=== PATIENT | male | born 1970 | race Caucasian/White ===

== ENCOUNTER 2017-10-26 10:15 | Inpatient (IN) | payer BC, OTHER ==
--- NOTE | 2017-10-26 10:12 | EDPHY ---
H & P Time Seen by Provider: 10/26/17 10:25 HPI/ROS: CHIEF COMPLAINT: Left upper arm pain HISTORY OF PRESENT ILLNESS: This is a 47-year-old male arrived as a limited trauma after falling off of a ladder that was placed on the scaffolding. He was painting a ceiling when this occurred. He landed on his left side, did not strike his head, did not lose consciousness. He complains of left upper arm and shoulder pain and left groin pain. He denies neck or back pain. He does not have chest pain or shortness of breath. He he does not have abdominal pain or nausea. No numbness or weakness. He denies headache. REVIEW OF SYSTEMS: A ten system review of systems was performed and is negative with the exception of the items mentioned in the HPI. 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 He does not use tobacco products. General: The patient is in no acute distress. The patient is alert. Vassar Coma Score is 15 . Head: Normocephalic/atraumatic. No Redmond's sign. No raccoon eyes. Neck: Nontender with palpation of the cervical spine. No pain with active range of motion of the neck. Trachea is midline. Eyes: Right pupil is eccentrically shaped, left pupil round and reactive to light. EOMI. No subconjunctival hemorrhage. Ears nose and throat: No hemotympanum. Nares are patent and without clotted nasal blood. No dental injury or malocclusion. Airway is patent. Lungs: No rib tenderness, crepitus, or subcutaneous emphysema. Breath sounds are equal and audible bilaterally. No wheezes, rales, or rhonchi. Cardiac: Heart has regular rate and rhythm without murmur, rub, or gallop. Abdomen: Soft, nontender, and nondistended. No guarding or rebound. Bowel sounds are present. Back: No vertebral tenderness. Pelvis: Stable. There is pain with palpation of the left groin. Skin: No ecchymoses. Skin is warm and dry. Extremities: Tender to palpation over the left humerus. Pulses: 2+ femoral and radial pulses bilaterally. Neuro: The patient is alert and oriented. Sensation is intact to light touch of all 4 extremities. Strength is 5 over 5 with testing of major motor groups-- unable to fully test left upper extremity due to pain/injury. 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 He is able to flex, extend, pronate, and supinate his left wrist and can extend all of his fingers on the left. Pupils as above. Facial expressions symmetric. Tongue midline. (Glendy Salter) Constitutional: Initial Vital Signs Temperature (C) 37.0 C 10/26/17 10:21 Heart Rate 67 10/26/17 10:21 Respiratory Rate 18 10/26/17 10:21 Blood Pressure 99/63 L 10/26/17 10:21 O2 Sat (%) 92 10/26/17 10:21 O2 Delivery Mode Room Air Allergies/Adverse Reactions: No Known Allergies Allergy (Verified 10/26/17 14:48) Home Medications: Medication Instructions Recorded Acetaminophen [Tylenol 325mg (*)] 325 - 650 mg PO Q4H PRN 10/27/17 Ibuprofen [Motrin (*)] 600 mg PO Q6H PRN tab 10/31/17 Polyethylene Glycol 3350 [Miralax 17 gm PO DAILY pkt 10/31/17 17 gm (*)] Rivaroxaban [Xarelto 10mg (*)] 10 mg PO DAILY #21 tab 10/31/17 Sennosides [Senokot] 1 tab PO BID tab 10/31/17 morphINE SR [Ms Contin/Oramorph 15 15 mg PO HS #7 tab 10/31/17 mg (*)] oxyCODONE IR [Oxycodone Ir (*)] 5 - 15 mg PO Q3HRS PRN #50 tab 10/31/17 Medical Decision Making Procedures: Procedure: Splint placement. A [ left arm coaptation] splint was applied by the emergency department staff. After application of the splint I returned and re-examined the patient. The splint was adequately immobilizing the joint and distal to the splint the patient's circulation and sensation was intact. (Glendy Salter) ED Course/Re-evaluation: Limited trauma after fall of approximately 15 ft. I do not suspect head injury. He has left humerus tenderness. Will obtain x-rays of the humerus in the pelvis. X-rays have been reviewed by me. He has a midshaft left humeral fracture, displaced, not open. There is some widening of the pubic symphysis appreciated on the pelvic x-ray. CT of pelvis ordered to further assess. On reexamination of the patient in remains awake and alert. He has normal strength in all 4 extremities--limited testing of the left upper extremity because of his humerus fracture. Sensation remains normal. Lungs are clear. Heart is regular. Abdomen is soft and nontender. CT scan of pelvis shows a nondisplaced right sacral ala fracture. His pain is on the contralateral side. However, when he attempts to walk he is unable to do so because of pain. He has received IV Dilaudid, IV Zofran, and IV Toradol in the emergency department. I am recommending admission. Patient was serially evaluated while in the emergency department by Dr. Uzair Hu and by me. I have not found evidence of other injuries. Dr. Gee Cabello has been notified of the patient's emergency department visit and injuries. He recommends a coaptation splint which was placed in the emergency department. Dr. Johanny Haider has been notified to oversee the patient's admission. (Glendy Salter) Differential Diagnosis: I considered a differential diagnosis of traumatic injury that includes but is not limited to intracranial hemorrhage, skull fracture, concussion, vertebral injury, spinal cord injury, intrathoracic injury, intra-abdominal injury, long bone fractures, contusions, abrasions, and lacerations. (Glendy Salter) Other Provider: 1300: Patient unable to walk secondary to pain in left pelvis/groin. He is able to bear weight on both legs unassisted - it is trying to take a step that causes pain. Given inability to ambulate, patient will require admission to the hospital. I consulted Drs. Haider and Irineo (ortho). (Uzair Hu) - Data Points Medications Given: Discontinued Medications Hydrocodone Bitart/Acetaminophen (Vernon 5/325) 1 - 2 tab PO Q6HRS PRN PRN Reason: Pain, Moderate Able to Take PO Stop: 11/05/17 13:18 Last Admin: 10/27/17 05:06 Dose: 2 tab Hydrocodone Bitart/Acetaminophen (Vernon 5/325) 1 - 2 tab PO Q4HRS PRN PRN Reason: Pain, Moderate Able to Take PO Stop: 11/05/17 13:18 Last Admin: 10/27/17 09:13 Dose: 2 tab Diazepam (Valium) 5 mg IVP EDNOW ONE Stop: 10/26/17 10:47 Last Admin: 10/26/17 10:56 Dose: 5 mg Docusate Sodium (Colace) 100 mg PO BID [facility] Stop: 04/25/18 20:59 Last Admin: 10/28/17 09:17 Dose: 100 mg Enoxaparin Sodium (Lovenox) 40 mg SC DAILY [facility] Stop: 04/25/18 08:59 Last Admin: 10/28/17 09:18 Dose: 40 mg Hydromorphone HCl (Dilaudid) 0.5 mg IVP EDNOW ONE Stop: 10/26/17 10:48 Last Admin: 10/26/17 10:54 Dose: 0.5 mg Hydromorphone HCl (Dilaudid) 0.5 mg IVP EDNOW ONE Stop: 10/26/17 11:24 Last Admin: 10/26/17 11:32 Dose: 0.5 mg Sodium Chloride (Ns) 1,000 mls @ 0 mls/hr IV EDNOW ONE; Wide Open PRN Reason: Protocol Stop: 10/26/17 10:25 Last Admin: 10/26/17 10:29 Dose: 1,000 mls Ibuprofen (Motrin) 600 mg PO Q8HRS [facility] Stop: 04/24/18 13:59 Last Admin: 10/28/17 13:42 Dose: 600 mg Ketorolac Tromethamine (Toradol) 30 mg IVP EDNOW ONE Stop: 10/26/17 12:36 Last Admin: 10/26/17 12:45 Dose: 30 mg Ketorolac Tromethamine (Toradol) 15 mg IVP Q6HRS [facility] Stop: 11/01/17 11:59 Last Admin: 10/28/17 05:05 Dose: 15 mg Oxycodone HCl (Oxycodone Ir) 5 - 15 mg PO Q3HRS PRN PRN Reason: Pain, Severe Able to Take PO Stop: 11/06/17 13:02 Last Admin: 10/28/17 15:22 Dose: 15 mg Oxycodone HCl (Oxycodone Ir) 5 mg PO ONCE ONE Stop: 10/28/17 14:16 Last Admin: 10/28/17 14:20 Dose: 5 mg Departure - Departure Disposition: [facility] Inpatient Acute Clinical Impression: Fracture of humerus, left, closed Qualifiers: Encounter type: initial encounter Humerus Location: shaft Fracture morphology: unspecified fracture morphology Qualified Code(s): S42.302A - Unspecified fracture of shaft of humerus, left arm, initial encounter for closed fracture Sacral fracture, closed Qualifiers: Encounter type: initial encounter Fracture alignment: nondisplaced Condition: Fair
[2017-10-26] MEDS ORDERED: NS 1,000 ML IV ONE (10:24)
[2017-10-26] MEDS ORDERED: DIAZEPAM 5 MG/ML 1 ML SYR IVP ONE (10:46)
[2017-10-26] MEDS ORDERED: HYDROmorphONE/DILAUDID 2 MG/ML INJ IVP ONE ×2 (10:47→11:23)
[2017-10-26] MEDS ORDERED: KETOROLAC 30 MG/1 ML SDV IVP ONE (12:35)
[2017-10-26] MEDS ORDERED: ONDANSETRON 4 MG/2 ML VIAL IVP PRN (13:19)
[2017-10-26] MEDS ORDERED: ACETAMINOPHEN 325 MG TAB PO PRN (13:19)
[2017-10-26] MEDS ORDERED: HYDROCODONE/APAP 5/325 TAB PO PRN (13:19)
--- NOTE | 2017-10-26 14:09 | GHP ---
DATE OF ADMISSION: 10/26/2017 CHIEF COMPLAINT: Limited trauma. HISTORY OF PRESENT ILLNESS: The patient is a 47-year-old who was on a wheeled scaffolding with a ladder painting approximately 15 feet in the air, when the wheels moved out on the scaffolding and the ladder fell through the scaffolding. He did not lose consciousness. He landed on his left side. He currently complains of left arm pain and left groin pain. Workup was obtained in the ER which included humerus, pelvis, and shoulder x-ray, which showed transverse fracture of the midshaft of the left humerus with posterior displacement. Pelvis CT revealed a nondisplaced vertical fracture of the right sacral ala. PAST MEDICAL HISTORY: Trauma to his right eye. PAST SURGICAL HISTORY: Back surgery by Dr. Ferrer in July of 2017. FAMILY HISTORY: Noncontributory. SOCIAL HISTORY: He is and does not use tobacco. REVIEW OF SYSTEMS: Ten-point review of systems is negative with the exception of pain in the left groin which is improving. PHYSICAL EXAMINATION: VITAL SIGNS: Reviewed. GENERAL: Pleasant, well- nourished, well-groomed man sitting on edge of bed. at bedside. HEENT: Normocephalic, atraumatic. Left pupil equal and round. Right pupil with limited motion. No rhinorrhea. No otorrhea. Teeth fit together normally. No midface instability. NECK: No cervical spine tenderness. C collar was removed prior to my arrival. CARDIAC: Regular rate. No peripheral edema. LUNGS: Clear to auscultation bilaterally. No increased work of breathing. CHEST: No chest tenderness. BACK: No back tenderness. MUSCULOSKELETAL: 5/5 strength with the exception of the left arm and 4/5 strength with the quadriceps on the left leg. NEURO: Grossly intact. He does have a radial pulse. His left upper extremity is swollen. IMPRESSION AND PLAN: A 47-year-old status post fall with no loss of consciousness. Dr. Cabello was consulted by patient request, who will see him. We discussed that he could have a strain to his groin. I offered MRI to better delineate the area, but as it is improving, he would like to wait as it would likely not change surgical management. I have also placed a call as a courtesy to Dr. Ferrer to let him know of his admission. /[id number]/MODL MTDD
[2017-10-26] MEDS: IBUPROFEN 600 MG TAB PO SCH ×2 (18:33→21:54)
--- NOTE | 2017-10-26 20:15 | SOAPPROG ---
SOAP Progress Note Assessment/Plan: Assessment: As in Xray findings. NV intact. Plan: Discussed options including pros and cons of: Castillo Brace, IM quang fixation, plate and screw fixation. All of these options can be reliably completed as an outpatient. Pain control and mobilization (walking) for now. Consultation note dictated. 10/26/17 20:11 Subjective: Left arm hurts all the time but way worse when I move. Objective: Vital Signs Temp Pulse Resp BP Pulse Ox 37.2 C 91 16 148/87 H 92 10/26/17 19:32 10/26/17 19:32 10/26/17 19:32 10/26/17 19:32 10/26/17 19:32 10/25/17 10/26/17 10/27/17 05:59 05:59 05:59 Intake Total 1000 Output Total 300 Balance 700 Left are in Coaptation splint. CSM Intact in Median, Musculotaneous, Radial, Ulnar and Axillary nerve distributions. Hand warm with bounding radial and ulnar pulses at wrist. Xray reviewed. Mid shaft humeral diaphysis fracture.. ICD10 Worksheet Patient Problems: Problems Problem Status Onset Fracture of humerus, left, closed Acute Sacral fracture, closed Acute
--- NOTE | 2017-10-26 20:51 | GCON ---
DATE OF CONSULTATION: 10/26/2017 REASON FOR CONSULTATION: Left midshaft humerus fracture. 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 Unfortunately, the ladder sli pped through the planking on the scaffolding and he fell approximately 15-18 feet to the ground. He was seen in the [facility] Emergency Department where in addition to a sacral ala fracture, he had a midshaf t left humerus nondominant arm, humerus fracture. He has significant pain in the left anterior groin that is limiting his ability to ambulate considerably. The remaining portion of his medical history is reviewed from his intake H and P by Dr. Haider and his workup in the emergency department at [facility]. PHYSICAL EXAMINATION: GENERAL: Finds a well-appearing gentleman in his bed today. A coaptation spl int has been applied to the left arm. By report of Dr. Hu, there were no open lesions on the a rm and I have not taken his coaptation splint down secondary to the discomfort that it would cause. He has an intact neurovascular examination in the lateral aspect of the arm. He is able to weakly fi re the deltoid today. He also has normal sensation in the musculocutaneous, median, ulnar, and media n nerve distributions. Radial nerve function is normal, especially with wrist and digits as well as thumb extension. Batch Records Clerk strength is normal. I have reviewed his films, which show a mid diaphyseal humerus fracture that is slightly displaced an d angulated. I talked to the patient about the treatment possibilities including the role of Castillo functional bracing, intramedullary nail fixation or plate and screw fixation. We discussed the pros and cons of each of these. The patient does not need to make a decision of this tonight over what treatment wis hes to pursue. We will mobilize him as tolerated with his groin injury and sacral ala fracture that is nondisplaced. That should not impede his ability to walk and move around. I likely would proceed with surgical f ixation as an outpatient if he chooses this. If he will be in a hospital through tomorrow, I will co nsult with [facility] to fit him for a Castillo fracture brace. In the meanti me, he is positioned adequately in his Castillo brace until which time we can reach a decision on lo ng-term treatment for this. /[id number]/MODL
[2017-10-27] MEDS: IBUPROFEN 600 MG TAB PO SCH ×3 (06:11→21:14)
[2017-10-27] MEDS ORDERED: HYDROCODONE/APAP 5/325 TAB PO PRN (07:56)
--- NOTE | 2017-10-27 08:05 | TRAUMAPN ---
Trauma Progress Note Assessment/Plan: no new overnight events. pain controlled with po meds. no n/v. no sob. no abd c/o. no new ext numbness or tingling (chronic left leg numbness). has not ambulated yet. left groin pain with leg flexion. no other new concerns voiced. avss. comfortable. neck nontender. heart reg. lungs clear. abd nontender. LUE in splint. hand warm and sensate. left 2+ fem pulse. mild hip tenderness with palpation. SCD in place. Left humeral fx, right sacral ala rx, left prob groin strain. PT to eval and treat today. pt desires to be discharged if able to ambulate safely. discussed possible role for MRI if unable to ambulate. will f/u with dr bernabe ([facility]) 1 week. Objective: Vital Signs Temp Pulse Resp BP Pulse Ox 37.1 C 78 16 142/99 H 93 10/27/17 04:00 10/27/17 04:00 10/27/17 04:00 10/27/17 04:00 10/27/17 04:00 10/26/17 10/27/17 10/28/17 05:59 05:59 05:59 Intake Total 1900 Output Total 500 Balance 1400
[2017-10-27] MEDS: ENOXAPARIN 40 MG/0.4 ML SYR SC SCH (08:46)
[2017-10-27] MEDS: KETOROLAC 15 MG/1 ML SDV IVP SCH ×3 (12:25→23:51)
--- NOTE | 2017-10-27 13:52 | SOAPPROG ---
AZUL Progress Note Assessment/Plan: Assessment/Plan: Left Humerus [id number] with mild angulation and displacement. Injured 10/26/17 while falling off of a ladder. Pt. would like to manage this fx with the Castillo brace rather than surgically at this point. Our office has been notified and will arrange for the fitting of this brace. Pt. to remain in coaptation splint and sling until he goes into his brace. Continue Ice Continue Pain meds per trauma Continue PT/OT to assist in ambulation strategies. Avoid NSAID's once outpatient-to avoid delaying bone healing. Please call [phone] to arrange a follow-up appointment with Dr. Cabello. Subjective: Pt. states that the pain in the left arm is the same that is was yesterday, no worse. He can feel the fracture shifting as he moves, but pain is manageable. He has had no numbness, tingling or weakness in the hand or fingers. The pain in his hip is most significant at this point and he is having difficulty ambulating more than just a few steps without significant pain in his hip. Trauma is managing his hip/back discomfort. Objective: Pt. resting in bed, appears to be comfortable and is answering questions appropriately. Coaptation splint and sling are in place. Distally, skin is warm, dry, pink to all digits. Sensation is intact to all digits to light touch. He can move the thumb specifically, as well as all of the digits without any difficulty. Capillary refill is brisk to all digits radial/ulnar pulses are brisk as well. 10/27/17 13:42 Objective: Vital Signs Temp Pulse Resp BP Pulse Ox 36.9 C 91 14 127/88 H 90 L 10/27/17 11:50 10/27/17 11:50 10/27/17 11:50 10/27/17 11:50 10/27/17 11:50 10/26/17 10/27/17 10/28/17 05:59 05:59 05:59 Intake Total 1900 500 Output Total 500 Balance 1400 500 ICD10 Worksheet Patient Problems: Problems Problem Status Onset Fracture of humerus, left, closed Acute Sacral fracture, closed Acute
[2017-10-27] MEDS: oxyCODONE IR 5 MG TAB PO PRN ×3 (14:20→21:13)
--- NOTE | 2017-10-27 15:47 | SOAPPROG ---
AZUL Progress Note Assessment/Plan: Assessment: Decision for fracture functional bracing. Plan: I have ordered a Castillo fracture brace for Terry's left arm from [facility] in [place]. They will come to hospital to fit this, likely on Tuesday10/28/17. 10/26/17 20:11 10/27/17 15:44 Objective: Vital Signs Temp Pulse Resp BP Pulse Ox 36.8 C 96 18 123/90 H 93 10/27/17 15:17 10/27/17 15:17 10/27/17 15:17 10/27/17 15:17 10/27/17 15:17 10/26/17 10/27/17 10/28/17 05:59 05:59 05:59 Intake Total 1900 500 Output Total 500 Balance 1400 500 ICD10 Worksheet Patient Problems: Problems Problem Status Onset Fracture of humerus, left, closed Acute Sacral fracture, closed Acute
--- NOTE | 2017-10-27 16:25 | ASMTCMCOM ---
CM Note CM Note Notes: Pt admitted for left humerus displaced fracture and pelvic fracture after falling off a ladder. Pt lives at home with and 23 year old son and works from home. Therapies are recommending inpatient Rehab for which he has been evaluated and approved, due to non weight bearing status of left arm and difficulty ambulating. Pt has not yet committed to a discharge plan. [facility] has submitted pt for [employer] authorization. Pt unavailable to discuss plans at this time. CM to follow. D/C Plan: Inpatient Rehab Date Signed: 10/27/2017 04:24 PM Electronically Signed By:Elinor Solano
--- NOTE | 2017-10-27 17:06 | PDMN ---
Medical Necessity Medical necessity: Change to inpt as of 10/27/17 @ 5764. Pt meets inpt criteria per MD order and Musculoskeletal GRG, multi-trauma. Est LOS>2MN for management of multi-trauma injuries including L humerus fracture, R sacral ala fracture, hip pain w/great difficulty ambulating. MRI results pending, IV Toradol and PO pain meds, PT/OT recommending inpt rehab, ongoing med nec inpt eval/treatment.
--- NOTE | 2017-10-27 19:18 | TRAUMAPNT ---
Trauma Tertiary Progress Note Assessment/Plan: no new overnight events. pain controlled with po meds. no n/v. no sob. no abd c/o. no new ext numbness or tingling (chronic left leg numbness). has not ambulated yet. left groin pain with leg flexion. no other new concerns voiced. avss. comfortable. neck nontender. heart reg. lungs clear. abd nontender. LUE in splint. hand warm and sensate. left 2+ fem pulse. mild hip tenderness with palpation. SCD in place. neck and back nontender. Left humeral fx, right sacral ala rx, left prob groin strain. PT to eval and treat today. pt desires to be discharged if able to ambulate safely. discussed possible role for MRI if unable to ambulate. will f/u with dr bernabe ([facility]) 1 week. MRI reviewed with rads - left pubic rami fx with right adductor longus strain. continued supportive care/pain control. rehab if unable to ambulate independently with po meds. Objective: Vital Signs Temp Pulse Resp BP Pulse Ox 36.8 C 88 16 137/88 H 92 10/27/17 16:45 10/27/17 16:45 10/27/17 16:45 10/27/17 16:45 10/27/17 16:45
[2017-10-27] MEDS: DOCUSATE SODIUM 100 MG CAP PO SCH (21:14)
[2017-10-28] MEDS: IBUPROFEN 600 MG TAB PO SCH ×2 (05:04→13:42)
[2017-10-28] MEDS: oxyCODONE IR 5 MG TAB PO PRN ×4 (05:04→15:22)
[2017-10-28] MEDS: KETOROLAC 15 MG/1 ML SDV IVP SCH (05:05)
--- NOTE | 2017-10-28 08:25 | TRAUMAPN ---
Trauma Progress Note Assessment/Plan: 47yo M s/p fall off scaffold c L humerus fx, L sacral alar fx, L pubic rami fx - Neuro: pain appears well controlled on oxycodone, has been trying to take it before ambulation for max effect - Pulm: on O2 overnight, lungs are otherwise clear. No rib fx. Still needs pulm toilet - CV: HDS - abd: tolerating reg diet, bowel regimen ordered - Renal: voiding, UOP adequate - MSK: still needs to be fit with LUE brace which is NWB. Patient is WBAT for ambulation which has been main issues as he has a lot of pain with ambulation currently. - Dispo: PT recs inpatient rehab, patient wants to go home. Will see how he does today. Subjective: no new complaints, in bed resting comfortably. Objective: Vital Signs Temp Pulse Resp BP Pulse Ox 36.9 C 85 16 134/78 H 96 10/28/17 04:00 10/28/17 04:00 10/28/17 04:00 10/28/17 04:00 10/28/17 04:00 10/27/17 10/28/17 10/29/17 05:59 05:59 05:59 Intake Total 850 Output Total 400 Balance 850 -400
[2017-10-28] MEDS: DOCUSATE SODIUM 100 MG CAP PO SCH (09:17)
[2017-10-28] MEDS: ENOXAPARIN 40 MG/0.4 ML SYR SC SCH (09:18)
[2017-10-28 11:43] VITALS: BP 138/86
--- NOTE | 2017-10-28 12:21 | SOAPPROG ---
AZUL Progress Note Assessment/Plan: Assessment/Plan: Left Humerus [id number] with mild angulation and displacement. Injured 10/26/17 after falling off of a ladder. Pt. would like to manage this fx with the Castillo brace rather than surgically at this point. [facility] has been notified and will come to fit the pt for the brace. Pt. will be discharged to [facility] inpatient rehab later today due to significant pain with ambulation, due to his pelvis fx. Pt. to remain in coaptation splint and sling until he goes into his brace. Continue NWB LUE. Continue Ice Continue Pain meds per trauma Avoid NSAID's once outpatient-to avoid delaying bone healing. Please call [phone] to arrange a follow-up appointment with Dr. Cabello. Please follow-up next week. Subjective: Pt. states that the pain in the left arm is the same that is was yesterday, no worse. He can feel the fracture shifting as he moves, but pain is manageable. He has had no numbness, tingling or weakness in the hand or fingers. The pain in his hip is most significant at this point and he is having difficulty ambulating more than just a few steps without significant pain in his hip. Trauma is managing his hip/back discomfort. Objective: Pt. resting in bed, appears to be comfortable and is answering questions appropriately. Coaptation splint and sling are in place. Distally, skin is warm, dry, pink to all digits. Sensation is intact to all digits to light touch. He can move the thumb specifically, as well as all of the digits without any difficulty. Capillary refill is brisk to all digits radial/ulnar pulses are brisk as well. 10/27/17 13:42 10/28/17 12:18 Objective: Vital Signs Temp Pulse Resp BP Pulse Ox 37.2 C 98 20 138/86 H 93 10/28/17 11:37 10/28/17 11:37 10/28/17 11:37 10/28/17 11:37 10/28/17 11:37 10/27/17 10/28/17 10/29/17 05:59 05:59 05:59 Intake Total 850 Output Total 400 Balance 850 -400 ICD10 Worksheet Patient Problems: Problems Problem Status Onset Fracture of humerus, left, closed Acute Sacral fracture, closed Acute
--- NOTE | 2017-10-28 12:52 | PDIAF ---
- Diagnosis Diagnosis: fall c L humerus fx, L sacral alar fx, l pubic rami fx Code Status: Full Code - Medication Management Discharge Medications: Medications to Continue on Transfer Acetaminophen [Tylenol 325mg (*)] 325 - 650 mg PO Q4H PRN 10/27/17 [Last Taken Unknown] Hydrocodone/Acetaminophen [[place] 5/325 (*)] 1 - 2 tab PO Q4H PRN 10/27/17 [Last Taken Unknown] Ibuprofen [Motrin (*)] 800 mg PO Q8H PRN 10/27/17 [Last Taken Unknown] Enoxaparin [Lovenox 40 MG (*)] 40 mg SC DAILY syr 10/28/17 [Last Taken Unknown] Ibuprofen [Motrin (*)] 600 mg PO Q8HRS tab 10/28/17 [Last Taken Unknown] oxyCODONE IR [Oxycodone Ir (*)] 5 - 15 mg PO Q3HRS PRN tab 10/28/17 [Last Taken Unknown] Discharge Medications: Refer to the Discharge Home Medication list for PRN reason. - Orders Services needed: Registered Nurse, Physical Therapy, Occupational Therapy Diet Recommendation: no restrictions on diet Diet Texture: Regular Texture Diet Additional Instructions: activity as tolerated. diet as tolerated. may shower. left arm brace at all times - ok to remove to shower. f/u dr. cabello 1 week. f/u trauma as needed. - Follow Up Care Current Providers and Referrals: JAMES FRIEDMAN [Non Staff Provider (MD)] - As per Instructions Shawn Dailey MD [Medical Doctor] - (if needed) Enrico Cabello MD [Medical Doctor] - follow up in 1 week
[2017-10-28] MEDS ORDERED: oxyCODONE IR 5 MG TAB PO ONE (14:15)
--- NOTE | 2017-10-28 17:05 | ASMTCMCOM ---
CM Note CM Note Notes: Pt medically stable for d/c to [facility] inpatient rehab and [employer] has authorized. Pt agrees to pay for [facility] transport scheduled for 1500. RN May to call report. Orders to be obtained via [employer]. Date Signed: 10/28/2017 04:47 PM Electronically Signed By:KATHERINE Torres
--- NOTE | 2017-10-28 17:06 | ASDISCHSUM ---
Discharge Information Plan Status:Inpatient Rehab Medically Cleared to Leave: Discharge Date:10/28/2017 03:35 PM CM D/C Disposition: ADT D/C Disposition:[facility] IP Projected Discharge Date:10/28/2017 11:00 AM Transportation at D/C: Discharge Delay Reason: Follow-Up Date:10/28/2017 11:00 AM Discharge Slot: Final Diagnosis: Placement Information Referral Type:Rehabilitation Hospital Referral ID:[id number] Provider Name:[facility] Inpatient [facility] Address 1:[address] Phone Number: Address 2: Fax Number: [facility] [place] Selection Factors: State:[place] Patient Contact Information Contact Name:CALLIE Relationship: Address:[address] Work Phone: City:[place] Alternate Phone: State/Zip Code:[place] [address] Email: Financial Information Financial Class:[employer] Primary Plan Desc:CHERELLE Yu [facility] Primary Plan Number:[id number] Secondary Plan Desc: Secondary Plan Number: Assessment Information LACE LACE Length of stay for Answers: 3 days current admission Acuity / Level of Answers: Yes Care: Did the patient have an inpatient admission? # of Emergency department Answers: 1-2 visits in the last 6 months Score: 7 Date Signed: 10/28/2017 04:48 PM Electronically Signed By:KATHERINE Torres [facility] Progress Note CM Note CM Note Notes: Pt admitted for left humerus displaced fracture and pelvic fracture after falling off a ladder. Pt lives at home with and 23 year old son and works from home. Therapies are recommending inpatient Rehab for which he has been evaluated and approved, due to non weight bearing status of left arm and difficulty ambulating. Pt has not yet committed to a discharge plan. [facility] has submitted pt for [employer] authorization. Pt unavailable to discuss plans at this time. CM to follow. D/C Plan: Inpatient Rehab Date Signed: 10/27/2017 04:24 PM Electronically Signed By:Elinor Solano [facility] CM Progress Note CM Note CM Note Notes: Pt medically stable for d/c to [facility] inpatient rehab and [employer] has authorized. Pt agrees to pay for [facility] transport scheduled for 1500. KELLEN May to call report. Orders to be obtained via [employer]. Date Signed: 10/28/2017 04:47 PM Electronically Signed By:KATHERINE Torres Intervention Information
--- NOTE | 2017-10-31 13:51 | PDDCSUM ---
Discharge Summary Discharge Summary: DISCHARGE SUMMARY Date of Admission October 26 Date of Discharge October 28 DISCHARGE DIAGNOSES -fall off ladder with the following injuries: Left humerus fracture, left sacral ala fracture, left superior pubic rami fracture. HOSPITAL COURSE The patient was admitted as a full trauma activation given the mechanism of his injuries. The above injuries were identified, he subsequently had consultation from orthopedics surgery. The decision was made to treat all injuries non operatively in the patient was treated as such showed his hospital course. He had consultation from both Physical and Occupational therapy and was subsequently discharged to inpatient rehab in stable condition weight-bearing as tolerated to the lower extremities nonweightbearing to the left upper extremity in stable condition on the afternoon of the . DISCHARGE MEDICATIONS Oxycodone as needed for pain DISPOSITION Inpatient rehab FOLLOW UP Follow up with Dr. Cabello in 1 week for re-evaluation follow up with Trauma as needed
== END 2017-10-28 15:35 | DRG 562 ==
LOC: EDUNIT# → F3N 14:49 → OBSVTOIN 10-27 16:48
PROVIDERS: ADMIT Surgery; ATTEND Surgery
PROC: 2W3BX1Z Immobilization of Left Upper Arm using Splint (ICD-10-PCS; principal; 2017-10-27)
DX: S42.322A Displaced transverse fracture of shaft of humerus, left arm, initial encounter for closed fracture (principal); S32.402A Unspecified fracture of left acetabulum, initial encounter for closed fracture; S32.111A Minimally displaced Zone I fracture of sacrum, initial encounter for closed fracture; S32.592A Other specified fracture of left pubis, initial encounter for closed fracture; W11.XXXA Fall on and from ladder, initial encounter; Y93.E9 Activity, other interior property and clothing maintenance; E86.9 Volume depletion, unspecified
CPT/HCPCS: 96374; 97116-GP; 97162-GP; 97165-GO; 97530-GP; A4565; G0378; J1170; J1650; J1885; J3360

== ENCOUNTER 2017-10-28 14:22 | Inpatient (IN) | payer OTHER ==
[2017-10-28] MEDS ORDERED: BISACODYL 10 MG SUPP PR PRN (16:50)
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
[2017-10-28] MEDS: morphINE SR 15 MG TAB PO SCH (21:23)
[2017-10-28] MEDS: SENNOSIDES 1 TAB PO SCH (21:23)
[2017-10-28] MEDS: ACETAMINOPHEN 500 MG TAB PO SCH (21:24)
[2017-10-29] MEDS: oxyCODONE IR 5 MG TAB PO PRN ×4 (05:10→20:47)
[2017-10-29] MEDS: ACETAMINOPHEN 500 MG TAB PO SCH ×3 (06:06→20:48)
[2017-10-29] MEDS: ENOXAPARIN 40 MG/0.4 ML SYR SC SCH (09:31)
[2017-10-29] MEDS: POLYETHYLENE GLYCOL 3350 17 GM PKT PO SCH (09:36)
[2017-10-29] MEDS: SENNOSIDES 1 TAB PO SCH ×2 (09:36→20:48)
--- NOTE | 2017-10-29 11:36 | SOAPPROG ---
SOAP Progress Note Assessment/Plan: Assessment: Debility, status post left humerus fracture and right pubic ramus fracture with extension into the acetabulum and left sacral ala fracture. PT and OT to optimize mobility and activities of daily living. Pain management. Will continue medications as ordered out of the hospital and will add morphine sustained release 15 mg at bedtime to optimize his sleep at night. Ibuprofen at 800 mg q.8 hours p.r.n. was added at the end of his hospital stay. Constipation. Will initiate a laxative regimen with senna 1-2 tablets twice daily and polyethylene glycol 17 g daily. Additionally, Fleets enema will be available and a bisacodyl suppository. Prophylaxis. He is at increased risk for DVT due to pelvic fractures and obesity. Continue enoxaparin 40 mg subcutaneous daily. If he is using significant amounts of ibuprofen, will also initiate GI prophylaxis with a proton pump inhibitor. Followup. He is to see orthopedic surgeon, Dr. Cabello, in approximately 1 week. This will be postponed if he needs to remain in inpatient rehabilitation longer than that. His primary care provider is Dr. Guy Guerrero, and he can see trauma surgeon, Dr. Shawn Dailey, if he has need to see him. 10/30/17 13:43 Subjective: Pelvic pain is worse than arm pain. Otherwise without complaints. Slept well. No cough or dyspnea. Objective: Vital Signs Temp Pulse Resp BP Pulse Ox 36.7 C 90 18 132/82 H 93 10/29/17 06:11 10/29/17 06:11 10/29/17 06:11 10/29/17 06:11 10/29/17 06:11 10/28/17 10/29/17 10/30/17 05:59 05:59 05:59 Intake Total 400 Output Total 500 700 Balance -100 -700 Physical Exam - Physical Exam General Appearance: WD/WN, alert, no apparent distress Respiratory: normal breath sounds, No crackles, No rhonchi, No wheezing Cardiac/Chest: regular rate, rhythm, No edema, No diastolic murmur, No systolic murmur Skin: normal color, warm/dry Extremities: other (Brace in place left humerus) Neuro/Psych: no motor/sensory deficits, alert, normal mood/affect, oriented x 3 ICD10 Worksheet Patient Problems: Problems Problem Status Onset Fracture of humerus, left, closed Acute Sacral fracture, closed Acute
[2017-10-29] MEDS: IBUPROFEN 800 MG TAB PO PRN (16:47)
[2017-10-29] MEDS: morphINE SR 15 MG TAB PO SCH (20:48)
[2017-10-30] MEDS: IBUPROFEN 800 MG TAB PO PRN ×2 (02:21→10:44)
[2017-10-30] MEDS: oxyCODONE IR 5 MG TAB PO PRN ×4 (02:21→20:39)
[2017-10-30] MEDS: ACETAMINOPHEN 500 MG TAB PO SCH ×3 (05:57→20:39)
[2017-10-30] MEDS: ENOXAPARIN 40 MG/0.4 ML SYR SC SCH (08:53)
[2017-10-30] MEDS: POLYETHYLENE GLYCOL 3350 17 GM PKT PO SCH (08:54)
[2017-10-30] MEDS: SENNOSIDES 1 TAB PO SCH ×2 (08:54→20:39)
--- NOTE | 2017-10-30 13:46 | PDOREHIP ---
Admission [facility] - Admission - 3 Day Assessment Period Admission Date/Day 1: 10/28/17 Day 2: 10/29/17 Day 3: 10/30/17 - Active Diagnoses Comorbidities and Co-existing Conditions at Admission: 08863. None of the Above - Skin Conditions Unhealed Pressure Ulcer (1 or more/Stage 1 or >)-Admission: 0. No
--- NOTE | 2017-10-30 13:54 | SOAPPROG ---
SOAP Progress Note Assessment/Plan: Assessment: Debility, status post left humerus fracture and right pubic ramus fracture with extension into the acetabulum and left sacral ala fracture. PT and OT to optimize mobility and activities of daily living. Pain management. Continue current medications: Morphine SR 15 mg at HS, oxycodone 5-15 mg q.3 hours p.r.n., acetaminophen 1000 mg three times daily scheduled. Will change ibuprofen dosing from 800 mg q.8 hours to 600 mg Q 6 hr p.r.n. * NSAID effect on bone healing discussed with orthopedic PA Dav Dias. If there is any harm it is more likely with prolonged use. Okay for short-term use , especially as he needs the ibuprofen to be able to get on his feet and work on ambulation. Constipation. Responding to laxatives. Continue senna 1-2 tablets twice daily and polyethylene glycol 17 g daily. Prophylaxis. He is at increased risk for DVT due to pelvic fractures and obesity. Continue enoxaparin 40 mg subcutaneous daily. If he is using significant amounts of ibuprofen, will also initiate GI prophylaxis with a proton pump inhibitor. Followup. He is to see orthopedic surgeon, Dr. Cabello, after discharge. After discussion with orthopedic PA today, 10/30/2017, will order x-ray of the left humerus on 11/02/[address] Cabello to review. His primary care provider is Dr. Guy Guerrero, and he can see trauma surgeon, Dr. Shawn Dailey, if he has need to see him. 10/30/17 13:47 Subjective: Pain control is much improved with ibuprofen, which seems to be the most effective medication for his pain from pelvic fractures. Sleeping well, no fevers or chills, no cough or dyspnea. Ambulating better today. Objective: Vital Signs Temp Pulse Resp BP Pulse Ox 36.6 C 72 18 132/85 H 98 10/30/17 06:04 10/30/17 06:04 10/30/17 06:04 10/30/17 06:04 10/30/17 06:04 10/29/17 10/30/17 10/31/17 05:59 05:59 05:59 Intake Total 400 1930 800 Output Total 500 1100 Balance -100 830 800 Physical Exam - Physical Exam General Appearance: WD/WN, alert, no apparent distress Respiratory: No respiratory distress, No accessory muscle use Skin: normal color, warm/dry Neuro/Psych: no motor/sensory deficits, alert, normal mood/affect, oriented x 3 , abnormal gait (Antalgic, using right axillary crutch, slow steps, needs to lean to the right to advance his left leg.) ICD10 Worksheet Patient Problems: Problems Problem Status Onset Fracture of humerus, left, closed Acute Sacral fracture, closed Acute
[2017-10-30] MEDS: IBUPROFEN 600 MG TAB PO PRN (18:05)
[2017-10-30] MEDS: morphINE SR 15 MG TAB PO SCH (20:39)
[2017-10-31] MEDS: oxyCODONE IR 5 MG TAB PO PRN ×5 (02:03→20:48)
[2017-10-31] MEDS: IBUPROFEN 600 MG TAB PO PRN ×4 (02:03→20:47)
[2017-10-31] MEDS: ACETAMINOPHEN 500 MG TAB PO SCH ×2 (06:01→14:28)
[2017-10-31] MEDS: SENNOSIDES 1 TAB PO SCH ×2 (08:13→20:48)
[2017-10-31] MEDS: POLYETHYLENE GLYCOL 3350 17 GM PKT PO SCH (08:14)
[2017-10-31] MEDS: ENOXAPARIN 40 MG/0.4 ML SYR SC SCH (08:26)
--- NOTE | 2017-10-31 09:33 | SOAPPROG ---
SOAP Progress Note Assessment/Plan: Assessment: Debility, status post left humerus fracture and right pubic ramus fracture with extension into the acetabulum and left sacral ala fracture. * In initial functional independence measure 96 on 10/31/2017. Standby assist for bed mobility, modified independence for transfers. Walked 100 ft with right axillary crutch and contact guard assist. Climbed and descended 8 stairs. Dressed independently this morning prior to OT session. Grooming and hygiene with supervision. Dressing upper and lower body standby assist. Shower transfer contact guard assist. Bathing standby assist. * Continue PT and OT to optimize mobility and activities of daily living. Pain management. Continue current medications: Morphine SR 15 mg at HS, oxycodone 5-15 mg q.3 hours p.r.n., acetaminophen 1000 mg three times daily scheduled. Changed ibuprofen dosing from 800 mg q.8 hours to 600 mg Q 6 hr p.r.n. on 10/30/2017. * NSAID effect on bone healing discussed with orthopedic PA Dav Dias. If there is any harm it is more likely with prolonged use. Okay for short-term use , especially as he needs the ibuprofen to be able to get on his feet and work on ambulation. Constipation. Responding to laxatives. Continue senna 1-2 tablets twice daily and polyethylene glycol 17 g daily. Prophylaxis. He is at increased risk for DVT due to pelvic fractures and obesity. Continue enoxaparin 40 mg subcutaneous daily. If he is using significant amounts of ibuprofen, will also initiate GI prophylaxis with a proton pump inhibitor. DISPOSITION: Attended staffing, 15 min. Discussed with case management, nursing, PT, OT. Doing very well. Has 2 steps to enter the house and will have assistance from his and 23-year-old daughter who lives there. Plan for discharge 11/01/2017. He should have outpatient occupational therapy when he is allowed weight-bearing on the left upper extremity. Followup. He is to see orthopedic surgeon, Dr. Cabello, on 11/02/2017. His primary care provider is Dr. Guy Guerrero, and he can see trauma surgeon, Dr. Shawn Dailey, if he has need to see him. 10/31/17 11:01 Subjective: He's not sure if the long acting morphine is helping. He took oxycodone at about 2 in the morning when he was up to urinate and then had considerable pain at about 5 in the morning. Otherwise without complaints. Pain during the days improving and he is able to ambulate better. Objective: Vital Signs Temp Pulse Resp BP Pulse Ox 36.4 C 73 18 139/91 H 96 10/31/17 05:27 10/31/17 05:27 10/31/17 05:27 10/31/17 05:27 10/31/17 05:27 10/30/17 10/31/17 11/01/17 05:59 05:59 05:59 Intake Total 1930 1500 600 Output Total 1100 Balance 830 1500 600 - Time Spent With Patient Time Spent With Patient: Greater than 35 min floor time today, including more than 50% of time in coordination of care during staffing meeting, and counseling patient. Physical Exam - Physical Exam General Appearance: WD/WN, alert, no apparent distress Respiratory: No respiratory distress, No accessory muscle use Skin: normal color, warm/dry Neuro/Psych: no motor/sensory deficits, alert, normal mood/affect, oriented x 3 ICD10 Worksheet Patient Problems: Problems Problem Status Onset Fracture of humerus, left, closed Acute Sacral fracture, closed Acute
[2017-10-31] MEDS ORDERED: ACETAMINOPHEN 500 MG TAB PO PRN (15:07)
--- NOTE | 2017-10-31 16:10 | PDOREHIP ---
Admission [facility] - Admission - 3 Day Assessment Period Admission Date/Day 1: 10/28/17 Day 2: 10/29/17 Day 3: 10/30/17 Discharge [facility] - Discharge - 3 Day Assessment Period 2 Days Prior to Anticipated Discharge Date: 10/30/17 1 Day Prior to Anticipated Discharge Date: 10/31/17 Anticipated Discharge Date: 11/01/17 - Discharge Skin Conditions Unhealed Pressure Ulcer (1 or more/Stage 1 or >)-Discharge: 0. No
[2017-10-31] MEDS: morphINE SR 15 MG TAB PO SCH (20:48)
[2017-11-01] MEDS: oxyCODONE IR 5 MG TAB PO PRN ×3 (06:09→12:53)
[2017-11-01] MEDS: IBUPROFEN 600 MG TAB PO PRN ×2 (06:09→12:53)
[2017-11-01 08:39] VITALS: BP 127/82
[2017-11-01] MEDS ORDERED: RIVAROXABAN 10 MG TAB PO SCH (09:00)
[2017-11-01] MEDS: POLYETHYLENE GLYCOL 3350 17 GM PKT PO SCH (09:28)
[2017-11-01] MEDS: SENNOSIDES 1 TAB PO SCH (09:29)
--- NOTE | 2017-11-02 18:42 | GDS ---
ADMISSION DIAGNOSIS: Left humerus fracture and bilateral pelvic fractures, status post 15 foot fall from a scaffold. DISCHARGE DIAGNOSIS: Left humerus fracture and bilateral pelvic fractures, status post 15 foot fall from a scaffold. OTHER DISCHARGE DIAGNOSES: 1. Pain management. 2. Constipation. PROCEDURES: There were none. COMPLICATIONS: There were none. CONSULTATIONS: There were none. HISTORY AND HOSPITAL COURSE: This patient came to inpatient rehabilitation after suffering a fall and a left humerus fracture, as well as right pubic ramus fracture and left sacral ala fracture. He was nonweightbearing on the left humerus and he was further impaired by pelvic pain when he attempted to stand or ambulate. Humerus fracture was treated nonsurgically with a Castillo brace. He had pain management established. Morphine SR 15 mg was initiated at h.s., oxycodone was prescribed at 5 to 15 mg q.3 hours p.r.n. and acetaminophen was scheduled at 1000 mg t.i.d. He was admitted from the hospital with ibuprofen at 800 mg q.8 hours. This was changed to 600 mg q.6 hours p.r.n. The potential NSAID effect on bone healing was discussed with Orthopedic PA, Dav Dias who felt that the potential harm was more likely with prolonged use then with short-term and he concurred that ibuprofen should be continued if it was effective in facilitating standing and ambulation. With ibuprofen on board, as well as the other pain medications, his tolerance of standing and ambulation improved. His initial functional independence measure was 96 on 10/31/2017. This is consistent with assisted living level of function. He required standby assist for bed mobility. He had modified independence for transfers. He was able to walk 100 feet with an axillary crutch on the right and contact guard assist. He climbed and descended 8 stairs. He dressed independently. He did grooming and hygiene with supervision. Dressing the upper and lower body required contact guard assist. Shower transfer required contact guard assist and bathing required standby assist. He had constipation, which responded to laxatives with senna and polyethylene glycol. He was maintained on DVT prophylaxis with enoxaparin 40 mg subcutaneous daily. On the day of discharge, this was changed to rivaroxaban 10 mg daily as it was anticipated that he would have difficulty self-injecting with his nonweightbearing status on the left upper extremity. He should continue rivaroxaban for another 21 days to give him a full 28 days of anticoagulation following pelvic fracture. DISCHARGE PLAN: 1. Destination is home with family. 2. Activity level is ad rosalina, but to maintain nonweightbearing status on the left upper extremity and to continue wearing Castillo brace. 3. Diet is regular. 4. He is not to return to driving while he is still using opiates. DISCHARGE MEDICATIONS: 1. Acetaminophen 325 to 650 mg p.o. q.4 hours p.r.n. 2. Ibuprofen 600 mg p.o. q.6 hours p.r.n. 3. Morphine SR 15 mg p.o. q.h.s. 4. Oxycodone 5 to 15 mg p.o. q.3 hours p.r.n. 5. Polyethylene glycol 17 g p.o. daily. 6. Rivaroxaban 10 mg p.o. daily. 7. Senna 1 tablet p.o. b.i.d. ISSUES TO BE ADDRESSED AT FOLLOWUP: 1. Left humerus fracture with nonweightbearing status on the left upper extremity. He will follow up with orthopedic surgeon, Dr. Enrico Cabello on 2017, at 1:15 p.m. 2. Functional status and pain management. These can be addressed by Dr. Cabello. He will also follow up with his primary care provider, Dr. Guy Guerrero on 11/03/2017. 3. Anticoagulation. He should continue rivaroxaban for 21 days post discharge. /[id number]/MODL MTDD
== END 2017-11-01 13:13 | disposition home or self-care (01) | DRG 946 ==
LOC: BREH 16:02
PROVIDERS: ADMIT Internal Medicine; ATTEND Internal Medicine
PROC: F07M3ZZ Motor Function Treatment of Musculoskeletal System - Whole Body (ICD-10-PCS; principal; 2017-10-28)
PROC: F08Z7ZZ Vocational Activities and Functional Community or Work Reintegration Skills Treatment (ICD-10-PCS; principal; 2017-10-28)
DX: R53.81 Other malaise (principal); S32.502D Unspecified fracture of left pubis, subsequent encounter for fracture with routine healing; S42.322D Displaced transverse fracture of shaft of humerus, left arm, subsequent encounter for fracture with routine healing; W12.XXXD Fall on and from scaffolding, subsequent encounter; E66.9 Obesity, unspecified; Z68.32 Body mass index [BMI] 32.0-32.9, adult; K59.00 Constipation, unspecified
CPT/HCPCS: 97110-GO; 97110-GP; 97116-GP; 97162-GP; 97166-GO; 97530-GO; 97530-GP; 97535-GO; J1650